=== PATIENT | female | born 1970 | race Native Hawaiian/Other Pacific Islander ===

== ENCOUNTER 2016-10-13 00:33 | Inpatient (IN) | payer OTHER ==
[2016-10-13] VITALS (30 sets, daily range): BP systolic 142–257; BP diastolic 78–128; TEMP 96.4–99.9; Ht 160 cm; Wt 184.2 kg
[~2016-10-13] VITALS: Ht 160 cm; Wt 184.2 kg
[2016-10-13 00:57] LABS: PLATELET COUNT 275 K/uL (152-353)
[2016-10-13 01:31] LABS: POTASSIUM 3.4 mmol/L (3.6-5.2); SODIUM 136 mmol/L (136-145)
[2016-10-14] VITALS (13 sets, daily range): BP systolic 131–174; BP diastolic 84–102; TEMP 97.5–99.4
[2016-10-14 08:08] LABS: PLATELET COUNT 318 K/uL (152-353)
[2016-10-14 08:27] LABS: POTASSIUM 3.8 mmol/L (3.6-5.2); SODIUM 134 mmol/L (136-145)
[2016-10-15] VITALS: BP 177/97; TEMP 97.7
[2016-10-15 04:00] VITALS: BP 128/66; TEMP 97.5
[2016-10-15 05:08] LABS: PLATELET COUNT 341 K/uL (152-353)
[2016-10-15 05:54] LABS: POTASSIUM 3.3 mmol/L (3.6-5.2); SODIUM 133 mmol/L (136-145)
[2016-10-15 08:00] VITALS: BP 143/88; TEMP 98.1
[2016-10-15 12:00] VITALS: BP 157/83; TEMP 98.1
== END 2016-10-15 13:00 | disposition home or self-care (01) | DRG 193 ==
LOC: ED 00:33 → ICU 01:40 → MED/SURG 01:40 → ICU 10:15 → MED/SURG 10-14 13:30
PROVIDERS: ADMIT Family Medicine
DX: J18.8 Other pneumonia, unspecified organism (principal); J96.02 Acute respiratory failure with hypercapnia; I50.31 Acute diastolic (congestive) heart failure; E66.01 Morbid (severe) obesity due to excess calories; I10 Essential (primary) hypertension
CPT/HCPCS: 36415; 36600; 51702; 80053; 81000; 82550; 82553; 82805; 83036; 83605; 83735; 83880; 84443; 84484; 85027; 87040; 87070; 87205; 90658; 90732; 93005; 93306; 94640; 94664; 94668; 94760; 96361; 96365; 96372; 99284; J0360; J0696; J1940; J1956; J2060; J2930; J3490

== ENCOUNTER 2017-09-30 14:15 | Outpatient (CLI) | payer OTHER | END 2017-09-30 14:43 | disposition short-term general hospital (02) | LOC: AMB 14:15 | DX: J44.1 Chronic obstructive pulmonary disease with (acute) exacerbation (principal); I48.92 Unspecified atrial flutter; J96.10 Chronic respiratory failure, unspecified whether with hypoxia or hypercapnia; I48.91 Unspecified atrial fibrillation; E66.01 Morbid (severe) obesity due to excess calories; E11.9 Type 2 diabetes mellitus without complications; I10 Essential (primary) hypertension; E78.2 Mixed hyperlipidemia; R53.83 Other fatigue; E53.8 Deficiency of other specified B group vitamins; G47.33 Obstructive sleep apnea (adult) (pediatric); R06.02 Shortness of breath | CPT/HCPCS: A0425; A0429 ==

== ENCOUNTER 2019-02-22 00:14 | Outpatient (CLI) | payer OTHER | END 2019-02-22 00:27 | disposition short-term general hospital (02) | LOC: AMB 00:14 | DX: R06.02 Shortness of breath (principal); R00.0 Tachycardia, unspecified | CPT/HCPCS: A0425; A0427 ==

== ENCOUNTER 2019-02-23 02:50 | Outpatient (CLI) | payer OTHER | END 2019-02-23 04:10 | disposition short-term general hospital (02) | LOC: AMB 02:50 | DX: R06.03 Acute respiratory distress (principal); R00.0 Tachycardia, unspecified; R09.02 Hypoxemia | CPT/HCPCS: A0425; A0427 ==

== ENCOUNTER 2020-06-30 15:47 | Observation (INO) | payer OTHER ==
[~2020-06-30] VITALS: Ht 160 cm; Wt 210.2 kg
[2020-06-30 15:47] VITALS: BP 161/88; TEMP 98.6
[2020-06-30 16:25] LABS: PLATELET COUNT 262 K/uL (152-353)
[2020-06-30 16:32] LABS: POTASSIUM 4.2 mmol/L (3.6-5.2); SODIUM 137 mmol/L (136-145)
--- NOTE | 2020-06-30 18:50 | NUR ---
PATIENT ARRIVED ON FLOOR VIA W/C FROM ER. ORIENTED TO SURROUNDINGS AND CALL LIGHT SYSTEM.
--- NOTE | 2020-06-30 20:10 | NUR ---
PATIENT CALLED. REQUESTING SOMETHING TO EAT AND DRINK. VENTI MASK INTACT @ 10L/MIN. 24G TO LEFT HAND INTACT. NO ERYTHEMA OR SWELLING NOTED. 2048- CALLED AND SPOKE WITH DR. COX. ORDERS GIVEN FOR PATIENT. PATIENT CONCERNED ABOUT RECEIVING HER 70/30 INSULIN. SHE NORMALLY HAS 35U BID. ORDER RECEIVED TO CONTINUE INSULIN 70/30. DR. COX ASKED THAT RESPIRATORY TRY PATIENT ON NASAL CANNULA @ 3L/MIN. SHE IS TO BE NOTIFIED IF PATIENT IS UNABLE TO MAINTAIN WITH 3L/MIN. CONTINUOUS PULSE OXIMETRY AND TELEMETRY ORDERED ALSO. ORDERS READ BACK AND VERIFIED BY DR. COX.
[2020-06-30] MEDS ORDERED: TEMA30CA18 PO (20:14)
[2020-06-30] MEDS ORDERED: ELIQUIS5 MG PO (20:14)
[2020-06-30] MEDS ORDERED: NOVOLOG MIX 70/30 PR SC (20:15)
--- NOTE | 2020-06-30 23:00 | NUR ---
PATIENT SWITCHED TO NC BY RESPIRATORY. O2 SAT IS CURRENTLY 94%. NS INFUSING @ 80ML/HR TO 24G TO LEFT HAND. STRONGLY ENCOURAGED PATIENT TO BE CAREFUL WITH HER IV SITE. ROCEPHIN STARTED IVPB. UPON ASSESSMENT, PATIENT NOTED TO HAVE SMALL, BLISTER-LIKE AREAS ON HER BLE. SHE STATES THAT THIS IS FROM A SKIN CONDITION THAT SHE HAS. RLE HAS PURPLE MARKINGS- SHE STATES THIS IS FROM A MEDICATION THAT SHE USED ON HER LEG. NO OPEN AREAS NOTED AT THIS TIME. SWELLING NOTED TO BILATERAL FEET. PATIENT DOES NOT C/O SOB- SHE NORMALLY WEARS A NASAL CANNULA AT HOME @ 3L/MIN. BED LOCKED AND IN LOWEST POSITION. CALL LIGHT WITHIN REACH.
[2020-06-30 23:34] VITALS: BP 120/80; TEMP 98.6; Ht 160 cm; Wt 210.2 kg
[2020-07-01 00:22] VITALS: BP 150/88; TEMP 98.7
[2020-07-01 04:00] VITALS: BP 135/77; TEMP 98.3
--- NOTE | 2020-07-01 04:00 | NUR ---
PATIENT HAS HAD SHORT EPISODES OF DESATURATION. HER O2 SAT WOULD INCREASE WHEN ASKED TO MOVE UP IN BED OR WHEN SHE IS WOKEN UP FROM SLEEP. SHE STATES THAT SHE WAS TOLD THAT SHE HAS SLEEP APNEA. SHE USED TO WEAR A CPAP AT NIGHT BUT STATES HER INSURANCE COMPANY MADE HER RETURN IT. CURRENTLY 93-95% ON 3L NC. PATIENT WAS NOT ADMINISTED A COVID SWAB PREVIOUSLY. UPON ENTERING ROOM, I ASKED THE PATIENT IF SHE WAS SWABBED FOR COVID IN THE ER. SHE BEGAN TO GET ANGRY AND STATES, "I DON'T WANT TO DO THAT." I INFORMED HER THAT EVERYONE THAT COMES INTO THE HOSPITAL HAS THIS DONE. SHE THEN STATES, "WELL YOU BETTER HURRY BEFORE I START SWINGING." I TOLD PATIENT SHE SHOULD NOT HIT ME, AND I EXPLAINED THAT IT ONLY TAKES A FEW SECONDS TO SWAB EACH SIDE. PATIENT ALLOWED ME TO SWAB BOTH SIDES WITH NO ISSUES. TISSUE WAS PROVIDED. NC INTACT. NAD NOTED. CALL LIGHT WITHIN REACH.
[2020-07-01 05:21] LABS: PLATELET COUNT 255 K/uL (152-353)
[2020-07-01 05:41] LABS: POTASSIUM 4.7 mmol/L (3.6-5.2)
[2020-07-01 08:00] VITALS: BP 140/64; TEMP 97.5
[2020-07-01] MEDS ORDERED: AMLODIPINE BESYLATE PO (10:20)
[2020-07-01] MEDS ORDERED: METO50TA27 PO (10:21)
[2020-07-01] MEDS ORDERED: NIFE30TA PO (10:30)
[2020-07-01] MEDS ORDERED: LISI20TA11 PO (10:31)
[2020-07-01] MEDS ORDERED: AMIODARONE HYD200 MG PO (10:32)
[2020-07-01] MEDS ORDERED: METF500T PO (10:33)
[2020-07-01] MEDS ORDERED: LIPITOR40 MG PO (10:35)
[2020-07-01 12:00] VITALS: BP 142/55; TEMP 98.6
--- NOTE | 2020-07-01 14:00 | NUR ---
DR COX INFOMRED OF MAGNESIUM LEVEL OF 1.6. ALSO INFORMED HER OF PT'S BLOOD SUGAR OF 259 THIS AM AND AT LUNCH 306. NEW ORDERS REC'D VIA PHONE TO START TO MAG OXZIDE 400MG 1 TAB PO BID 1ST DOSE NOW. AWAITING FURTHER ORDERS.
--- NOTE | 2020-07-01 16:10 | NUR ---
CALLED [facility] AND MS. 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 AFTER 3 MONTHS OF RECEIVING CPAP, MACHINE WAS EVALUATED AND IT WAS DETERMINED THE PATIENT DID NOT WEAR MACHINE AND MACHINE WAS RETURNED TO COMPANY WHO PROVIDED THE PATIENT THE CPAP. REQUESTED [facility] ATTEMPT TO OBTAIN A CPAP MACHINE FOR PATIENT, FACESHEET FAXED TO [facility]. MS. RAJPUT ADVISED THE PROCESS COULD TAKE APPROXIMATELY 3 DAYS TO DETERMINE IF PATIENT QUALIFIES FOR A CPAP. DR. COX NOTIFIED OF SAME. NO NEW ORDERS RECEIVED FROM PHYSICIAN AT THIS TIME.
--- NOTE | 2020-07-01 16:25 | NUR ---
NEW RX'S CALLED TO [facility] PER PHYSICIAN ORDERS.
--- NOTE | 2020-07-01 17:20 | NUR ---
IV D/C'D WITH TIP IN TACT. PATIENT TOLERATED WELL.
--- NOTE | 2020-07-01 17:25 | NUR ---
REVIEWED DISCHARGE INSTRUCTIONS WITH PATIENT ALONG WITH INSTRUCTIONS TO CALL [facility] IN THE AM AND NOTIFY DR. COX OF STATUS OF RECEIVING A CPAP, PT AND BOTH V/O UNDERSTANDING. PATIENT DENIES ANY FURTHER QUESTIONS OR C/O AT THIS TIME. PATIENT TAKEN TO POV VIA WHEELCHAIR AND PATIENT TRANSFERRED TO POV WITHOUT DIFFICULTY WITH USE OF HOME OXYGEN PORTABLE.
== END 2020-07-01 17:30 | disposition home or self-care (01) ==
LOC: ED 15:47 → MED/SURG 18:02
PROVIDERS: Emergency Medicine; ADMIT Family Medicine; ATTEND Family Medicine
DX: J44.1 Chronic obstructive pulmonary disease with (acute) exacerbation (principal); I10 Essential (primary) hypertension; I48.91 Unspecified atrial fibrillation; R06.02 Shortness of breath; E66.8 Other obesity; R06.09 Other forms of dyspnea
CPT/HCPCS: 36415; 36600; 80053; 82550; 82805; 82948; 83735; 83880; 84100; 84484; 85027; 87040; 87635; 93005; 94640; 94664; 94760; 96365; 96366; 96367; 96372; 99220; 99284; G0378; J0456; J0696; J1650; J1815; U0003